=== PATIENT | male | born 1955 | race Hispanic/Latino ===

== ENCOUNTER 2022-07-08 11:46 | Emergency (ER) | payer MEDICARE ==
[~2022-07-08] VITALS: Ht 172.7 cm; Wt 99.8 kg
[2022-07-08] MEDS ORDERED: ACETAMINOPHEN 500 MG TABLET PO ONE (12:30)
[2022-07-08] MEDS ORDERED: KETOROLAC 30MG VIAL (30MG/ML) IM STA (13:27)
[2022-07-08] MEDS ORDERED: NAPR-1196 PO (13:29)
[2022-07-08 13:47] VITALS: BP 142/73
== END 2022-07-08 13:47 | disposition home or self-care (01) ==
LOC: EDH 11:46
DX: M66.822 Spontaneous rupture of other tendons, left upper arm (principal); I10 Essential (primary) hypertension
CPT/HCPCS: 99284; 73070; 73030; 73110; J1885